=== PATIENT | male | born 1975 | race African-American/Black ===

== ENCOUNTER 2021-01-29 17:21 | Emergency (ER) | payer MEDICAID ==
[~2021-01-29] VITALS: Ht 182.9 cm; Wt 70.0 kg
[2021-01-29 17:30] VITALS: BP 144/96
[2021-01-29] MEDS ORDERED: ACETAMINOPHEN 325MG TABLET PO ONE (18:30)
[2021-01-29] MEDS ORDERED: IBUPROFEN 400MG TABLET PO ONE (20:15)
== END 2021-01-29 20:19 | disposition home or self-care (01) ==
LOC: ER 17:21
DX: M79.644 Pain in right finger(s) (principal)
CPT/HCPCS: 73140; 99283

== ENCOUNTER 2022-04-26 04:43 | Emergency (ER) | payer MEDICAID ==
[~2022-04-26] VITALS: Ht 180.3 cm; Wt 66.0 kg
[2022-04-26 04:52] VITALS: BP 122/89
[2022-04-26 06:07] LABS: CHLORIDE 103 mEq/L (98-107)
[2022-04-26 06:16] LABS: BASOPHILS % 0.3 % (0.0-2.0); EOSINOPHILS % 0.5 % (0.0-5.0); HEMATOCRIT. 40.1 % (42.0-52.0); HEMOGLOBIN. 13.3 g/dL (14.0-18.0); MEAN CORPUSCULAR HEMOGLOBIN 28.6 pg (28.0-32.0); MEAN CORPUSCULAR VOLUME 86.3 fL (80.0-94.0); MEAN PLATELET VOLUME 8.2 fl (7.4-10.4); MONOCYTES % 8.7 % (2.0-8.0); NEUTROPHILS % 81.5 % (40.0-76.0); PLATELET 275 x1000/uL (130-400); RED BLOOD CELL COUNT 4.64 mill/uL (4.7-6.1); RED CELL DISTRIBUTION WIDTH 13.1 % (11.6-14.6)
[2022-04-26] MEDS ORDERED: GUAI120017 PO (07:26)
[2022-04-26] MEDS ORDERED: TOPUD PO (07:27)
== END 2022-04-26 07:56 | disposition home or self-care (01) ==
LOC: ER 04:45
DX: R60.0 Localized edema (principal); J21.9 Acute bronchiolitis, unspecified; J45.909 Unspecified asthma, uncomplicated
CPT/HCPCS: 36415; 71045; 80053; 83880; 84484; 85025; 99285

== ENCOUNTER 2023-11-04 16:13 | Emergency (ER) | payer MEDICAID ==
[~2023-11-04] VITALS: Ht 175.3 cm; Wt 70.0 kg
[~2023-11-04 16:13] MED LIST: GUAI120017 PO; TOPUD PO
[2023-11-04 16:15] VITALS: BP 140/90; PULSE 70; RESP 16; TEMP 98.2; O2SAT 100
== END 2023-11-04 17:21 | disposition home or self-care (01) ==
LOC: ER 16:13
DX: T25.022A Burn of unspecified degree of left foot, initial encounter (principal); J45.909 Unspecified asthma, uncomplicated; X12.XXXA Contact with other hot fluids, initial encounter; Y93.89 Activity, other specified; Y92.89 Other specified places as the place of occurrence of the external cause; Y99.8 Other external cause status
CPT/HCPCS: 99283